=== PATIENT | female | born 1945 | race Caucasian/White ===

== ENCOUNTER 2016-11-16 02:41 | Inpatient (IN) | payer OTHER, MEDICARE ==
[~2016-11-16] VITALS: Ht 149.9 cm; Wt 54.4 kg
[~2016-11-16 02:41] MED LIST: FOSAMAX70 M1; LEVOCETIRIZINE D5 M1; MECLIZINE HCL25 MG PO; METOPROLOL TART25 M1 PO; MYRBETRIQ50 M1; PATADAY2.5 ML; PREMARIN0.3 M1 PO; SINGULAIR10 M1 PO
[2016-11-16] MEDS ORDERED: ACTONEL150 M1 PO (09:58)
[2016-11-16] MEDS ORDERED: FLUTICASONE PRO16 GM NS (10:00)
[2016-11-16] MEDS ORDERED: MYRBETRIQ50 M1 PO (12:07)
[2016-11-16] MEDS ORDERED: MIRALAX17 G1 PO (12:25)
[2016-11-16] MEDS ORDERED: COLACE100 M1 PO (12:25)
[2016-11-16] MEDS ORDERED: ASPIRIN EC325 M2 PO (12:25)
--- NOTE | 2016-11-16 12:31 | Patient Discharge Instructions ---
Discharge Instructions General Discharge Information You were seen/treated for: RIGHT HIP PAIN RELATED TO UNILATERAL PRIMARY OSTEOARTHRITIS You had these procedures: RIGHT TOTAL HIP REPLACEMENT Watch for these problems: Increasing pain despite the use of pain medication. Increasing redness, warmth, swelling. Drainage of any type from incision. Inability to bear weight on operative leg. Persistent nausea and vomitting. Fever greater than 101.5 degrees Do not soak the wound: Yes No bath, but you may shower: Yes Other wound care: No ointment of any type on or near incision at any time. No exceptions. Keep wound clean and dry. Dressing will be changed on the second day post operatively. Daily dry dressing changes recommended thereafter. Special Instructions: Aspirin: Please take as directed in order to help prevent the development of a blood clot. Take with food to protect stomach. Constipation: Pain medication can be very constipating. Please take colace and miralax as directed to ensure that you are moving your bowels. You may discontinue this medication if you develop diarrhea. If you are unable to move your bowels for several days, or if you are unable to pass gas, please contact your doctor. Diet Continue normal diet: Yes Recommended Diet: Gluten Free, Regular (dairy free) Activity Full Activity/No Limits: No Activity Self Limited: Yes Pounds, do NOT lift more than: 10 Acute Coronary Syndrome Inclusion Criteria At DC or during hospital stay patient has or had the following: ACS DIAGNOSIS No Discharge Core Measures Meds if any: Prescribed or Continued at Discharge Meds if any: NOT Prescribed or Continued at Discharge Congestive Heart Failure Inclusion Criteria At DC or during hospital stay patient has or had the following: CHF DIAGNOSIS No Discharge Core Measures Meds if any: Prescribed or Continued at Discharge Meds if any: NOT Prescribed or Continued at Discharge Cerebrovascular accident Inclusion Criteria At DC or during hospital stay patient has or had the following: CVA/TIA Diagnosis No Discharge Core Measures Meds if any: Prescribed or Continued at Discharge Meds if any: NOT Prescribed or Continued at Discharge Venous thromboembolism Inclusion Criteria VTE Diagnosis No VTE Type NONE VTE Confirmed by (Test) NONE Discharge Core Measures - Per Current guidelines, there needs to be overlap - treatment for the first 5 days of Warfarin therapy. - If discharged on Warfarin prior to 5 days of - overlap therapy, the patient will need to be - assessed for post discharge needs including - *Post discharge parental anticoagulation - *Warfarin and/or parental anticoagulation education - *Follow up date to check INR post discharge At least 5 days overlap therapy as Inpatient No Meds if any: Prescribed or Continued at Discharge Note: Overlap Therapy is Warfarin and Anticoagulant Meds if any: NOT Prescribed or Continued at Discharge
--- NOTE | 2016-11-16 12:32 | Admission Core Measures ---
Admission Meds I reviewed the following Meds: Current Medications Sig/Cherie Start time Last Medication Dose Stop Time Status Admin Acetaminophen 975 MG ONCE 11/16 0000 NR (Tylenol) 11/16 2358 Cefazolin Sodium 2,000 MG ONCE 11/16 NR (Kefzol-Ancef Inj) 11/16 2358 Fluticasone 2 SPRAY BID 11/16 2199 UNVr Propionate (Flonase) Meclizine HCl 25 MG BID 11/16 2199 UNVr (Antivert) Metoprolol Tartrate 25 MG BID 11/16 220 AC (Lopressor) Montelukast Sodium 10 MG DAILY 11/17 1000 AC (Singulair) Non-Formulary 0 SEE ADMIN CRITERIA 11/16 1215 UNVr Medication (NON FORMULARY) Acute Coronary Syndrome Inclusion Criteria ACS Diagnosis No Inpatient Core Measures LDL Reminder: If No, please order W/I first 24hr of stay Congestive Heart Failure Inclusion Criteria CHF Diagnosis No Cerebrovascular accident Inclusion Criteria CVA/TIA Diagnosis No Inpatient Core Measures Bedside Swallow Eval Reminder: If BSE failed, place ST order Antithrombotic Reminder: Order Antithrombotic Medication by end of day 2 Antithrombotic Reminder: Document Reason Antithrombotic Not ordered by end of day 2 AFIB/Flutter Reminder: If Present, add to problem list AFIB/Flutter Reminder: Order Anticoag Medication for pts with AFIB/Flutter Atherosclerosis Reminder: If Present, add to problem list LDL Reminder: If No, please order W/I first 24hr of stay PT Order Reminder: If No, please order Venous thromboembolism Inpatient Core Measures VTE Risk Factors: Age > 40, Surgery No [facility] VTE prophylaxis d/t No contraindications No VTE Pharm Prophylaxis d/t No contraindications Inclusion Criteria - Per Current guidelines, there needs to be overlap - treatment for the first 5 days of Warfarin therapy. - Parenteral Anticoagulation (IV or SC) needs to be - given along with Warfarin therapy. VTE Diagnosis No VTE Type NONE VTE Confirmed by (Test) NONE Problem List As ranked by this Provider includes Assessment & Plan 1. Unilateral primary osteoarthritis, right hip HOME MEDS Home Med List Estrogens, Conjugated (Premarin) 0.3 MG TABLET 1 TAB PO DAILY HRT (Reported) Fluticasone Propionate 50 MCG/ACTUATION SPRAY.SUSP 2 SPRAY NS TWICE DAILY SINUS (Reported) Meclizine HCl 25 MG TABLET 1 TAB PO BID VERTIGO (Reported) Metoprolol Tartrate 25 MG TABLET 1 TAB PO BID CARDIAC (Reported) Mirabegron (Myrbetriq) 50 MG TAB.ER.24H 50 MG PO DAILY OVERACTIVE BLADDER Montelukast Sodium (Singulair) 10 MG TABLET 1 TAB PO DAILY ALLERGIES ( Reported) Risedronate Sodium (Actonel) 150 MG TABLET 1 TAB PO MONTHLY BONE HEALTH ( Reported)
--- NOTE | 2016-11-16 12:34 | Surgical Discharge Summary ---
See Addendum Visit Information Visit Dates Admission Date: 11/16/16 Discharge Date: 11/19/16 History of Present Illness Chief Complaint: RIGHT HIP PAIN RELATED TO UNILATERAL PRIMARY OSTEOARTHRITIS Surgical History Pertinent Surgical History: none, hip replacement Review of Systems: see h&p Hospital Course Course Attending Physician: AMADA DE LA FUENTE MD Primary Care Physician: DMITRIY RYDER MD Hospital Course: Patient was admitted to the hospital for an elective total joint replacement. Procedure was tolerated well and patient was transferred to a general surgical floor. Diet was advanced and tolerated and patient voided spontaneously. PT evaluated and treated. At time of discharge, vital signs were stable and within normal limits, neurovascular status was intact, and pain was controlled with oral pain medications. Complications: None Allergies: Coded Allergies: chocolate flavor (Severe, ANAPHYLAXIS 11/16/16) diphenhydramine (From BENADRYL ALLERGY) (Severe, ANANPHYLAXIS 11/16/16) shellfish derived (Severe, ANAPHYLAXIS 11/16/16) tramadol (Severe, ANAPHYLAXIS 11/16/16) gluten (Intermediate, ITCHING 11/16/16) morphine (Intermediate, NAUSEA 11/16/16) oxycodone (Intermediate, NAUSEA 11/16/16) cat dander (Mild, ITCH 11/16/16) dog dander (Mild, ITCH 11/16/16) Uncoded Allergies: GEORGIAN FOOD (Severe, ANAPHYLAXIS 11/16/16) OATS/WHEAT (Mild, ITCH 11/16/16) Disposition Summary Disposition Principal Diagnosis: UNILATERAL PRIMARY OSTEOARTHRITIS RIGHT HIP Additional Diagnosis: NONE Discharge Disposition: home health services Discharge Instructions General Discharge Information Code Status: Full Code Patient's Diet: Gluten and dairy free, ADVANCE TOLERATED Patient's Activity: WBAT Follow-Up Instructions/Appts: [address] DE LA FUENTE, CALL OFFICE TO ARRANGE / CONFIRM THIS APPOINTMENT. Medications at Discharge Discharge Medications: Continue taking these medications: Estrogens, Conjugated (Premarin) 0.3 MG TABLET 1 Tablet ORAL DAILY Levocetirizine Dihydrochloride (Levocetirizine Dihydrochloride) 5 MG TABLET Metoprolol Tartrate (Metoprolol Tartrate) 25 MG TABLET 1 Tablet ORAL TWICE DAILY Olopatadine HCl (Pataday) 0.2 % DROPS Montelukast Sodium (Singulair) 10 MG TABLET 1 Tablet ORAL DAILY Risedronate Sodium (Actonel) 150 MG TABLET 1 Tablet ORAL MONTHLY Fluticasone Propionate (Fluticasone Propionate) 50 MCG/ACTUATION SPRAY.SUSP 2 [place] NASAL TWICE DAILY Start taking the following new medications: Aspirin (Ecotrin*) 325 MG TABLET.DR 1 Tablet ORAL TWICE DAILY Qty = 60 No Refills Docusate Sodium (Colace) 100 MG CAPSULE 1 Capsule ORAL TWICE DAILY Qty = 14 No Refills Instructions: DISCONTINUE USE IF YOU DEVELOP LOOSE STOOL OR DIARRHEA Polyethylene Glycol 3350 (Miralax) 17 GRAM POWD.PACK 1 Packet ORAL DAILY Qty = 7 No Refills Instructions: dissolve in water, DISCONTINUE USE IF YOU DEVELOP LOOSE STOOL OR DIARRHEA Oxycodone HCl (Oxycodone HCl) 5 MG TABLET 1-2 Tablet ORAL EVERY 4-6 HOURS NEEDED as needed for pain control Qty = 36 No Refills Instructions: take as directed for pain control The following medications have been changed: Old: Meclizine HCl (Meclizine HCl) 25 MG TABLET 1 Tablet ORAL TWICE DAILY New: Meclizine HCl (Meclizine HCl) 25 MG TABLET 0.5 Tablet ORAL TWICE DAILY Qty = 30 Copies To: BRITNI VEGA,DMITRIY Clark
--- NOTE | 2016-11-16 14:41 | Operative Report ---
Operative/Inv Procedure Report Surgery Date: 11/16/16 Name of Procedure: Right total hip replacement Pre-Operative Diagnosis: Primary right hip DJD Post-Operative Diagnosis: Same Estimated Blood Loss: 300 Surgeon/Certified Flex Endoscope Reprocessor: SUDHAKAR VEGA,AMADA Jaffe Anesthesia: block Operative/Procedure Note Note: Description of Procedure: The patient was taken to the operating room and positively identified. After induction of spinal anesthesia and administration of appropriate pre-operative antibiotics, the patient was positioned supine on the operating room table and all bony prominences were well padded. After performing a surgical timeout, the right lower extremity was prepped and draped in the usual sterile fashion. A direct anterior approach was made to the right hip. The incision was carried sharply through superficial soft tissues to the level of the fascia. Meticulous hemostasis was maintained with Bovie electocautery. The fascia over the tensor fascia ldiia muscle was opened sharply and the interval between the TFL and the sartorius was entered bluntly taking care to stay lateral to the lateral femoral cutaneous nerve. Retractors were placed around the femoral neck and the pericapsular fat was identified. The ascending branches of the lateral femoral circumflex vessels were identified and carefully coagulated. The pericapsular fat and anterior capsule were then resected. A napkin ring osteotomy was performed and the femoral head was removed without difficulty. Attention was then turned to the acetabulum. After appropriate placement of retractors, the acetabulum was exposed. Soft tissue was cleaned from the acetabular margin and notch. Overhanging osteophytes were removed and the teardrop was exposed. The femoral head had fully collapsed and carved out a contained defect in the dome of the acetabulum. The acetabulum was then sequentially reamed to accept a 52 mm [place] hemispherical acetabular shell. 30 mL of cancellus chips were impacted into the contained defect in the dome and reverse reamed into place. The cup was impacted into place in the appropriate position and 2 screws were used for supplemental fixation. It was then fitted with a 36 mm Trident X3 zero degree polyethylene insert. Attention was then turned to the femur. After performing the appropriate ligament releases, the proximal femur was exposed. It was then sequentially broached to accept a size 3 [place] accolade 2 stem. This was trialed for leg length and stability. The trial component was removed and the final component was impacted into place. The trunnion was carefully cleaned and fit with a 36 mm, + 2.5 Biolox delta ceramic femoral head. The hip was reduced and put through a full range of motion and found to be stable. The articular space was then irrigated with sterile saline. The periarticular soft tissues were infilitrated with Marcaine. The fascial layer was closed with interrupted #1 vicryl suture and the skin was re-approximated with interrupted 2 -0 vicryl. The skin was closed with a running 3-0 V-Lock suture. Steri-strips and a sterile dressing were applied. The patient was awakened and taken to the recovery room in satisfactory condition.
--- NOTE | 2016-11-16 14:59 | RADIOLOGY REPORT ---
EXAMINATION: XR HIP, RIGHT CLINICAL INFORMATION: Status post right total hip arthroplasty. COMPARISON: None TECHNIQUE: Two views of the right hip. FINDINGS: There are immediate postoperative changes identified consistent with left total hip arthroplasty with metallic acetabular, femoral head, and proximal femoral components with 2 acetabular screws identified. There is no evidence of immediate complication. IMPRESSION: Postoperative changes right hip as noted.
--- NOTE | 2016-11-16 16:07 | PN- Orthopedic ---
Subjective Subjective: Post op check: Patient is status post right total hip replacement. She tolerated the procedure well and is presently without complaints of pain. She denies chest pain, shortness of breath and difficulty breathing. She denies nausea and vomitting. She has yet to void. She has yet to ambulate. Objective Vital Signs and I&Os BP: 101/50 HR: 75 RR: 18 Temp: 97.1 O2: 98% 2l nc Physical Exam: General : Alert and oreinted x3, no acute distress Cardiac: RRR, s1s2 Pulmonary: CTA bilaterally Abdomen: Non-tender, non-distended Extremties: Moves all extremties, distal sensations grossly intact. Motor 5/5 in plantar and dorsi flexion bilaterally. Skin warm and well perfused. DP pulses palpable bialterally. Bilateral calves soft and non-tender. Surgcial site: Right thigh. Dressing dry and intact. Thigh compartment soft. Assessment/Plan Assessment/Plan Assessment: This is a 71 year old female with a pmh significant for osteoporosis, vertigo, overactive bladder and allergies. She is post op day 0, s/p R total hip replacement and she is doing well. She does note the following concerns: Tramadol causes her to feel anxious and restless and she would prefer not to be given this med. Morphine makes her feel as though she is "loopy" and light headed. If pain worsens, she would consider having this meidcation added to her regimen. Oxycodone causes nausea and she needs to take it with food. She feels that she is sensitive to this med and would prefer to have it in small doses if needed. She has yet to try dilaudid. She has several severe food allergies including shellfish which causes anaphylaxis. She also notes that she is lactose intolerant and gluten causes her to itch. Plan: -Pain management with Offirmev for now to be given q6 hours. For po pain management, consider trying dilaudid 2-4 mg po q4-6 hours as needed or oxycodone 5 mg q4-6 hours as needed. IV morphine for breakthrough pain. Can consider IV toradol as well. -IV prophylaxis: Ancef 2 grams for 2 additional doses -DVT prophylaxis: ASA 325 mg bid, mechanical with ALPS, teds to be given at time of discharge -Home meds to be continued, patient agreed to hold antihistamine for the time that she is here unless needed. -Diet: Gluten free, avoid lactose -IV fluids: d5 1/2 NS at 75/hr, to be continued tomorrow am unless pt tolerating adequate po and making adequate urine. -Activity: OOB, wbat Core Measures/Miscellaneous Venous Thromboembolism VTE Risk Factors: Age > 40, Surgery VTE Contraindications: No Contraindications VTE Diagnosis: No VTE Type: NONE VTE Confirmed by (Test): NONE Beta Nawaf Is Beta Nawaf a Home Med? Yes If Yes, Was This Ordered Today? Yes Antibiotics Is Patient on Antibiotics? Yes If Yes: prophylaxis
[2016-11-16] MEDS ORDERED: MECLIZINE HCL25 MG PO (16:37)
--- NOTE | 2016-11-16 16:41 | NUR ---
PHYSICAL THERAPY: P.T. AWAITING Pt ARRIVAL TO FLOOR FOR EVALUATION; AT THIS TIME Pt REMAINS IN [place], AWAITING TRANSPORT TO [facility]. P.T. LEAVING THE FLOOR AT THIS TIME, STAFF AND Pt MADE AWARE WILL F/U FOR P.T. EVAL IN MORNING.
--- NOTE | 2016-11-16 17:00 | NUR ---
NURSING NOTE: PATIENT ARRIVED TO FLOOR VIA STRETCHER WITH DISITRIBUTION FROM PACU. PATIENT A/OX3, C/O PAIN TO LOWER BACK. VSS. ALL BELONGINGS ARRIVED WITH PATIENT AND DAUGHTER TO BEDSIDE. WILL CONTINUE TO MONITOR.
[2016-11-16 17:09] VITALS: BP 140/70
[2016-11-16 19:10] VITALS: BP 130/72
[2016-11-16 21:59] VITALS: BP 136/60
--- NOTE | 2016-11-17 07:44 | PN- Orthopedic ---
Subjective Subjective: POD#1 S/P RIGHT MIKE C/O RIGTH THIGH PAIN NOT WELL CONTROLLED LAST NIGHT ALSO REFUSED NARCOTIC PAIN MEDS UNTIL LATE INTO PAIN CYCLE NOW TAKING OXYCODONE WITH SOME RELIEF DENIES CP, SOB, NO N+V WITH DIET Objective Vital Signs and I&Os Vital Signs Date Time Temp Pulse Resp B/P B/P Pulse O2 O2 Flow FiO2 Mean Ox Delivery Rate 11/16 2158 98.0 74 20 136/60 94 Room Air 11/16 212 74 136/60 /2121 Room Air / 1910 97.5 79 18 130/72 96 Room Air / 1709 97.8 69 18 140/70 96 Room Air Intake & Output 11/17 0811/17 0000 11/16 1600 11/16 0800 11/16 0000 11/15 1600 Intake Total 950 Output Total Balance 950 Intake, IV 450 Intake, Oral 500 Patient 120 lb Weight Weight Reported by Patient Measurement Method Physical Exam: CV: RRR LUNGS: CLEAR ABD: SOFT, +BS EXT: RIGTH THIGH SOFT NO CALF TENDERNESS BILAT DRSG DRY, DISTAL CMS INTACT Assessment/Plan Assessment/Plan ORTHO STABLE PLAN ASA FOR DVT PROPHYLAXIS F/U AM LABS, IF CR OK CONSIDER TORADOL ANOTHER NON NARC OPTION OOB WITH PT/STAIRS HOME D/C PLANNING Core Measures/Miscellaneous Venous Thromboembolism VTE Risk Factors: Age > 40, Surgery VTE Contraindications: No Contraindications VTE Diagnosis: No VTE Type: NONE VTE Confirmed by (Test): NONE Beta Nawaf Is Beta Nawaf a Home Med? Yes If Yes, Was This Ordered Today? Yes Antibiotics Is Patient on Antibiotics? Yes If Yes: prophylaxis
[2016-11-17 08:06] VITALS: BP 118/58
[2016-11-17 08:38] LABS: ABSOLUTE BASOPHIL COUNT 0 /CUMM (0.0-0.2); ABSOLUTE EOSINOPHIL COUNT 0 /CUMM (0.0-0.7); ABSOLUTE GRANULOCYTE CT 7.8 /CUMM (1.4-6.5); ABSOLUTE LYMPH COUNT 1.8 /CUMM (1.2-3.4); ABSOLUTE MONOCYTE COUNT 1.3 /CUMM (0.10-0.60); BASOPHIL % 0.2 % (0.0-2.0); EOSINOPHIL % 0 % (0-5); GRANULOCYTE % 71.4 % (42.2-75.2); HEMATOCRIT 34.5 % (37-47); MEAN CORPUSCULAR HGB 32.7 PG (27.0-31.0); MEAN CORPUSCULAR HGB CONC 33.5 G/DL (33.0-37.0); MEAN CORPUSCULAR VOLUME 97.6 FL (81.0-99.0); MEAN PLATELET VOLUME 9.5 FL (7.4-10.4); PLATELET COUNT 155 /CUMM (130-400); RBC DISTRIBUTION WIDTH 12.6 % (11.5-14.5); RED BLOOD CELL CT 3.53 /CUMM (4.20-5.40); WHITE BLOOD CELL COUNT 10.9 /CUMM (4.8-10.8)
[2016-11-17] MEDS ORDERED: OXYCODONE HCL5 M1 PO (08:46)
[2016-11-17 15:06] VITALS: BP 118/58
--- NOTE | 2016-11-17 21:51 | NUR ---
PATIENT ALERT AND ORIENTED X 3. C/O RIGHT HIP AND LEG PAIN. PATIENT HAD IV OFIRMEV ORDERED. PATIENT HAD GOTTEN UP TO 4000 MG AT 2150. NOTIFIED JANINE SMITH OF SITUATION. PER LUIS OK TO GIVE THE 2300 DOSE AFTER MIDNIGHT. WILL CONTINUE TO MONITOR.
[2016-11-17 22:29] VITALS: BP 118/66
[2016-11-18 07:15] VITALS: BP 124/68
--- NOTE | 2016-11-18 07:36 | PN- Orthopedic ---
Subjective Subjective: No acute events overnight. He complains of moderate to severe pain in the right anterior thigh and right hip region. She was able to get up and out of bed to the bathroom independently. She states the pain medication is helping her somewhat but would like something else for pain. No nausea no vomiting no fever. Objective Vital Signs and I&Os Vital Signs Date Time Temp Pulse Resp B/P B/P Pulse O2 O2 Flow FiO2 Mean Ox Delivery Rate 11/18 0615 98.3 68 18 124/68 95 Room Air 11/17 2229 98.3 63 18 118/66 96 Room Air 11/17 2141 64 130/68 11/17 1506 97.8 67 20 118/58 96 Room Air 11/17 1130 118/58 11/17 1043 Room Air 11/17 0806 97.8 67 20 118/58 96 Room Air Intake & Output 11/18 0800 /07 0000 11/17 1600 11/17 0800 11/17 0000 /05 1600 Intake Total 300 1200 1430 950 Output Total Balance 300 1200 1430 950 Intake, IV 300 600 950 450 Intake, Oral 600 480 500 Number 0 Bowel Movements Patient 120 lb Weight Weight Reported by Patient Measurement Method Physical Exam: Well-developed well-nourished no apparent distress. HEENT: Atraumatic, extraocular motion intact Neck: Supple, no lymphadenopathy Respiratory: No respiratory distress Extremities: No edema RIGHT lower extremity hip dressing in place, Dressing clean dry and intact with minimal bloody staining Incision without erythema Mild thigh edema No signs of infection. No shortening or rotation Hip range of motion is limited and without unexpected pain Neurovascularly intact distally Bilateral calves are supple, nontender. Neuro: Alert and oriented x3 Psych: Mood affect normal, normal memory normal judgment. Skin: Warm and dry Results Last 48 Hours of Labs: Laboratory Tests 11/17 0710 Chemistry Sodium (137 - 145 mmol/L) 136 L Potassium (3.5 - 5.1 mmol/L) 4.0 Chloride (98 - 107 mmol/L) 100 Carbon Dioxide (22 - 30 mmol/L) 28 Anion Gap (5 - 16) 8 BUN (7 - 17 mg/dL) 9 Creatinine (0.5 - 1.0 mg/dL) 0.6 Estimated GFR (>60 ml/min) > 60 BUN/Creatinine Ratio (7 - 25 %) 15.0 Hematology CBC w Diff NO MAN DIFF REQ WBC (4.8 - 10.8 /CUMM) 10.9 H RBC (4.20 - 5.40 /CUMM) 3.53 L Hgb (12.0 - 16.0 G/DL) 11.6 L Hct (37 - 47 %) 34.5 L MCV (81.0 - 99.0 FL) 97.6 MCH (27.0 - 31.0 PG) 32.7 H RDW (11.5 - 14.5 %) 12.6 Plt Count (130 - 400 /CUMM) 155 MPV (7.4 - 10.4 FL) 9.5 Gran % (42.2 - 75.2 %) 71.4 Lymphocytes % (20.5 - 51.1 %) 16.8 L Monocytes % (1.7 - 9.3 %) 11.6 H Eosinophils % (0 - 5 %) 0 Basophils % (0.0 - 2.0 %) 0.2 Absolute Granulocytes (1.4 - 6.5 /CUMM) 7.8 H Absolute Lymphocytes (1.2 - 3.4 /CUMM) 1.8 Absolute Monocytes (0.10 - 0.60 /CUMM) 1.3 H Absolute Eosinophils (0.0 - 0.7 /CUMM) 0 Absolute Basophils (0.0 - 0.2 /CUMM) 0 PUBS MCHC (33.0 - 37.0 G/DL) 33.5 Assessment/Plan Assessment/Plan Postoperative day #2 status post right total hip arthroplasty anterior approach. Inadequately controlled pain, and MS Contin 15 mg twice a day Perioperative antibiotics completed DC IV fluids as patient is tolerating by mouth well and is voiding well. Aspirin for DVT prophylaxis Plan for discharge and short-term rehabilitation tomorrow Dressing changed today Core Measures/Miscellaneous Venous Thromboembolism VTE Risk Factors: Age > 40, Surgery VTE Contraindications: No Contraindications VTE Diagnosis: No VTE Type: NONE VTE Confirmed by (Test): NONE Beta Nawaf Is Beta Nawaf a Home Med? Yes If Yes, Was This Ordered Today? Yes Antibiotics Is Patient on Antibiotics? Yes If Yes: prophylaxis
[2016-11-18 14:47] VITALS: BP 110/60
--- NOTE | 2016-11-18 17:08 | NUR ---
REDNESS NOTED TO NOSE AND CHEEKS. PT STATES SHE'S MILDLY ALLERGIC TO SUGAR AND LAST NIGHT SHE HAD SUGARY JUICE. SHE THINKS THE REDNESS WILL GO AWAY IN TIME.
[2016-11-18 22:33] VITALS: BP 118/72
[2016-11-19 06:40] VITALS: BP 138/64
--- NOTE | 2016-11-19 07:16 | PN- Orthopedic ---
Subjective Subjective: The patient seen this morning postoperatively day #3. She reports her pain is under adequate control as long as she is in bed. She has no complaints at the current time. Objective Vital Signs and I&Os Vital Signs Date Time Temp Pulse Resp B/P B/P Pulse O2 O2 Flow FiO2 Mean Ox Delivery Rate / 0640 98.7 88 20 138/64 94 / 2233 98.3 87 18 118/72 95 Room Air / 2056 86 118/72 / 1447 98.0 70 18 110/60 97 Room Air / 1102 124/68 /07 0715 98.3 68 18 124/68 95 Room Air Intake & Output / 0800 06/08 0000 / 1600 / 0800 / 0000 / 1600 Intake Total 351 883 2557 621 438 5916 Output Total Balance 991 039 5233 295 758 4247 Intake, IV 500 600 300 600 Intake, Oral 120 400 800 600 Physical Exam: GEN: Alert and in no obvious distress Skin: Warm and dry Externus: Bilateral lower extremities warm without calf tenderness or significant edema. Gross motor and sensory are intact. Right hip dressing is clean, dry, and intact without signs of infection. There is expected micaela- incisional edema and ecchymosis but thigh compartments remain soft Assessment/Plan Assessment/Plan Assessment: 71-year-old female status post right total hip arthroplasty postoperative day #3. The patient is progressing as expected and her pain is under adequate control. Plan: Out of bed with physical therapy Continue current pain regiment GI and DVT prophylaxis Daily dry dressing change Discharged to short-term rehabilitation later today. Core Measures/Miscellaneous Venous Thromboembolism VTE Risk Factors: Age > 40, Surgery VTE Contraindications: No Contraindications VTE Diagnosis: No VTE Type: NONE VTE Confirmed by (Test): NONE Beta Nawaf Is Beta Nawaf a Home Med? Yes If Yes, Was This Ordered Today? Yes Antibiotics Is Patient on Antibiotics? No
[2016-11-19 10:38] VITALS: BP 138/64
== END 2016-11-19 12:40 | DRG 470 ==
LOC: SDA 02:41 → 2NB 02:41 → SDA 07:00 → ENRESERV 15:10 → ENTRNSPT 16:03 → 2NB 16:48 → EDTRNSPT 16:53 → CMPTRNSPT 16:54 → DELTRNSPT 17:16 → SDA 11-17 07:00 → ENPENDDIS 11-19 07:21 → 2NB 11-19 12:40
PROVIDERS: Nurse Practitioner; ADMIT Orthopaedic Surgery
PROC: 0SR904A Replacement of Right Hip Joint with Ceramic on Polyethylene Synthetic Substitute, Uncemented, Open Approach (ICD-10-PCS; principal; 2016-11-16)
DX: M16.11 Unilateral primary osteoarthritis, right hip (principal); I10 Essential (primary) hypertension; R42 Dizziness and giddiness; R32 Unspecified urinary incontinence; J45.909 Unspecified asthma, uncomplicated
CPT/HCPCS: 2NSBP; 73502-RT; 82436; 88304; 97116-GO; 97161-GP; 97530-GO; J0131; J0690; J0735; J1170; J2250; J2405; J2550; J3010; J7042